=== PATIENT | male | born 1940 | race Caucasian/White ===

== ENCOUNTER 2019-12-09 17:55 | Emergency (ER) | payer MEDICARE, BC, SELFPAY ==
[2019-12-09] VITALS (10 sets, daily range): BP systolic 167–174; BP diastolic 80–102; PULSE 70–79; RESP 1–24; TEMP 37.1; O2SAT 94–100; BMI 52.9
--- NOTE | 2019-12-09 19:01 | ED_ITS ---
Documented by User: Umesh Glasgow DO 12/12/19 07:24 HPI - Dizziness General: Chief Complaint: Dizziness Stated Complaint: dizzy Time Seen by Provider: 12/09/19 18:45 History of Present Illness: HPI Narrative: 79-year-old male comes in with dizziness. He states he was fine this morning he first got out of bed and got back into bed when he got out of bed the second time he instantly had nausea he vomited once he felt a bit better so he sat down drink some coffee he got back up again and vomited he thought he might get felt better if he laid down so he laid down for the next several hours. When he woke up all of his symptoms are persisting whenever he looks to the left or when he stands up from a seated or lying position he can reproduce his symptoms. He also noted when he were does reproduce his symptoms he frequently gets dry heaves or vomiting and he has significant balance problems. Looking to the left will definitely repeat repeatedly precipitate the symptoms he demonstrated in the room although he denies any vomiting when he did that. He denies any chest pain or shortness of breath denies any abdominal pain has not been around anyone and is known to be exposed COVID and he denies any cough or upper respiratory symptoms. MD elicited complaint: dizziness, lightheadedness and difficulty walking Onset (ago): hour(s) Timing: sudden onset Severity: moderate Description: sense of movement, room spinning , lightheadedness, off-balance and difficulty walking Context: change in body position History of similar symptoms: No Exacerbating factors: movement/ambulation, change in body position and other (Turning his head to the left repeatedly triggers the dizziness) Relieving factors: remaining still and lying down Associated symptoms: Reports no associated symptoms; Denies chest pain, chills, malaise, nausea, nasal congestion or vomiting Associated neuro symptoms: Reports no associated symptoms Review of Systems Const: Denies: fever(s), chills, body aches, change in appetite, fatigue or malaise ENMT: Denies: throat pain, ear or mastoid pain, nasal discharge or nasal congestion Card: Denies: chest pain, edema, dyspnea on exertion or orthopnea Resp: Denies: dyspnea, productive cough or non-productive cough GI: Denies: abdominal pain, nausea, vomiting, hematemesis, coffee ground emesis, diarrhea, constipation, bloating, hematochezia or melena : Denies: flank pain, dysuria, urinary frequency or urinary urgency Skin/Breast: Denies: rash or pruritus PFSH ED PFSH: Medical History (Updated 12/09/19 @ 21:21 by Falguni Hart) Atrial fibrillation Impaired glucose tolerance Surgical History (Updated 12/09/19 @ 19:04 by Umesh Glasgow DO) History of permanent cardiac pacemaker placement Social History (Updated 12/09/19 @ 19:05 by Umesh Glasgow DO) Smoking and tobacco status: never smoked Alcohol intake: current Alcohol intake frequency: 0-2 Drinks per Day Physical Exam Const: COMMON NORMALS: no acute distress GENERAL APPEARANCE: cooperative and comfortable ORIENTATION/CONSCIOUSNESS: Yes awake, Yes oriented to person, Yes oriented to place and Yes oriented to time HENMT: COMMON NORMALS: normocephalic, atraumatic, hearing grossly normal bilaterally, external ears normal, EAC's normal, TM's normal bilaterally, Normal nasal mucous membranes and turbinates present, moist oral mucous membranes and oropharynx normal HEAD & SCALP: normocephalic and atraumatic NOSE: Normal nasal mucous membranes and turbinates present EXTERNAL EAR: Yes external ears normal EXTERNAL AUDITORY CANAL: EAC's normal TYMPANIC MEMBRANE: TM's normal bilaterally Eye: COMMON NORMALS: Equal, round and reactive pupils present, EOMs intact bilaterally, conjunctivae normal and no scleral icterus CONJUNCTIVA: Yes conjunctivae normal PUPIL: Yes Equal, round and reactive pupils present Neck/C-Spine: COMMON NORMALS: full ROM, no lymphadenopathy, supple and no JVD Lymph: LYMPHATIC: no lymphadenopathy noted and no lymphedema noted Resp: COMMON NORMALS: normal respiratory effort, No retractions, No use of accessory muscles and clear to auscultation bilaterally AUSCULTATION: clear to auscultation bilaterally Cardio: COMMON NORMALS: no JVD, regular rate, regular rhythm and No murmurs present (Cardio) RATE: regular rate RHYTHM: regular rhythm GI: COMMON NORMALS: Soft to palpation and No hepatosplenomegaly present AUSCULTATION: Yes normoactive bowel sounds PALPATION: Yes Soft to palpation, No Tenderness to palpation present (GI), No Guarding due to palpation present (GI) and Yes No hepatosplenomegaly present Extremity: COMMON NORMALS: normal to inspection, capillary refill normal, no clubbing, cyanosis or edema, no calf tenderness and no pedal edema Neuro: SENSORIUM/ORIENTATION: Yes oriented to person, Yes oriented to place and Yes oriented to time Skin: COMMON NORMALS: no rashes or lesions noted GENERAL SKIN EXAM: no rashes or lesions noted Course Vital Signs: Vital signs: Vital Signs Temperature 98.7 F 12/09/19 18:19 Pulse Rate 72 12/09/19 21:44 Respiratory Rate 20 H 12/09/19 21:44 Blood Pressure 167/87 12/09/19 21:44 Pulse Oximetry 95 12/09/19 21:44 MDM - Dizziness MDM Narrative: Medical decision making narrative: Care turned over to Dr. Beckett at change of shift Lab Data: Labs: Lab Results 12/09/19 12/09/19 12/09/19 Range/Units 19:32 19:32 19:32 WBC 8.7 (4.0-10.0) 10^3/ uL RBC 4.65 (4.1-5.3) 10^6/u L Hgb 14.0 (11.7-16.6) g/dL Hct 44.4 (42.0-52.0) % MCV 95.5 H (80-94) fL MCH 30.1 (28.0-34.0) pg MCHC 31.5 (30.0-36.0) g/dL RDW 13.9 (12.1-15.1) % Plt Count 153 (130-400) 10^3/c mm MPV 12.0 H (7.4-10.4) fL Neut % (Auto) 90.0 % Lymph % (Auto) 7.2 % [place] % (Auto) 2.3 % Eos % (Auto) 0.0 % Baso % (Auto) 0.2 % Neut # (Auto) 7.8 H (1.8-7.7) 10^3/u L Lymph # (Auto) 0.6 L (0.8-4.8) 10^3/u L [place] # (Auto) 0.2 (0.2-0.9) 10^3/u L Eos # (Auto) 0.0 (0.0-0.8) 10^3/u L Baso # (Auto) 0.0 (0.0-0.1) 10^3/u L Nucleated RBC % (a uto) 0 % Nucleated RBCs # 0.0 /100WBC PT 24.90 H (10.5-13.3) SECO NDS INR 2.16 H (0.8-1.2) Sodium 137 (136-145) mmol/L Potassium 4.7 (3.5-5.1) mmol/L Chloride 100 (98-107) mmol/L Carbon Dioxide 24 (22-29) mmol/L Anion Gap 17.7 (5-19) BUN 28 H (8-23) mg/dL Creatinine 1.0 (0.7-1.2) mg/dL Glucose 153 H (65-115) mg/dL Calculated Osmolal ity 284 L (285-295) mOsm/k g Calcium 10.0 (8.5-10.5) mg/dL Total Bilirubin 0.5 (0.15-1.2) mg/dL AST 17 (0-40) U/L ALT 14 (0-41) U/L Alkaline Phosphata se 86 (40-130) IU/L Troponin T Baselin e (0-15) ng/L Total Protein 7.8 (6.6-8.7) g/dL Albumin 4.0 (3.5-5.2) g/dL Globulin 3.8 (1.3-4.6) g/dL // Range/Units 19:32 WBC (4.0-10.0) 10^3/ uL RBC (4.1-5.3) 10^6/u L Hgb (11.7-16.6) g/dL Hct (42.0-52.0) % MCV (80-94) fL MCH (28.0-34.0) pg MCHC (30.0-36.0) g/dL RDW (12.1-15.1) % Plt Count (130-400) 10^3/c mm MPV (7.4-10.4) fL Neut % (Auto) % Lymph % (Auto) % [place] % (Auto) % Eos % (Auto) % Baso % (Auto) % Neut # (Auto) (1.8-7.7) 10^3/u L Lymph # (Auto) (0.8-4.8) 10^3/u L [place] # (Auto) (0.2-0.9) 10^3/u L Eos # (Auto) (0.0-0.8) 10^3/u L Baso # (Auto) (0.0-0.1) 10^3/u L Nucleated RBC % (a uto) % Nucleated RBCs # /100WBC PT (10.5-13.3) SECO NDS INR (0.8-1.2) Sodium (136-145) mmol/L Potassium (3.5-5.1) mmol/L Chloride (98-107) mmol/L Carbon Dioxide (22-29) mmol/L Anion Gap (5-19) BUN (8-23) mg/dL Creatinine (0.7-1.2) mg/dL Glucose (65-115) mg/dL Calculated Osmolal ity (285-295) mOsm/k g Calcium (8.5-10.5) mg/dL Total Bilirubin (0.15-1.2) mg/dL AST (0-40) U/L ALT (0-41) U/L Alkaline Phosphata se (40-130) IU/L Troponin T Baselin e 36 H (0-15) ng/L Total Protein (6.6-8.7) g/dL Albumin (3.5-5.2) g/dL Globulin (1.3-4.6) g/dL Discharge Plan Discharge Patient Disposition: Home, Self-Care Clinical Impression: Benign paroxysmal positional vertigo Qualifiers: Laterality: left Qualified Code(s): H81.12 - Benign paroxysmal vertigo, left ear Condition: Stable Prescriptions: New Valium 5 mg tablet 2.5 mg PO QID PRN (Reason: dizziness or vertigo) Qty: 10 RF: 0 meclizine 25 mg tablet 25 mg PO QID PRN (Reason: dizziness) Qty: 60 RF: 0 Discharge Orders: Discharge Order (Routine); Ordered 12/09/19 Ordered By: Falguni Hart Referrals: Gael Quach MD [Physician] - 1-3 days Discharge Diet: Advance as tolerated Discharge Activity: Limit activity as instructed Patient Instructions: Vertigo (ED), Benign Paroxysmal Positional Vertigo (ED), Dizziness (ED) Activity Restrictions/Additional Instructions: Please return to the ER immediately for any of the signs or symptoms listed on your discharge instruction sheets, worsening/changing of your symptoms, you are not getting better as quickly as expected, or for ANY other cause or concerns. I have recommended and offered to evaluate your dizziness further with a different type of CT scan here but you have declined. I cannot definitively rule out a stroke in the deep part of your brain without this. If you change your mind, your symptoms worsen, or you have any other concerns or you simply change your mind you are more than welcome to return to the ER for recheck. Do not take both your Valium and Antivert together. Try Valium for the next 24 to 48 hours if your symptoms resolve try Antivert as needed for the dizziness. Be very careful while taking Valium as it can make you sleepy and lightheaded. Take extra time to perform all of your daily activities as you do not want to fa ll or hit your head being on Coumadin. Discharge Date/Time: 12/09/19 21:48 Sign Out Sign Out Data: Patient Sign Out occurred on 12/09/19 at 19:30. Patient's care was discussed, and care was transferred from Umesh Glasgow DO to Falguni Hart. Sign Out Comment: Likely positional vertigo is on Coumadin CT head INR other l abs pending Last updated by Umesh Glasgow DO at 12/09/19 19:15 Coding Level of Care Code ED Tab Card Press Operator for Chg Fwd Exam Comprehensive Documented by User: Falguni Hart 12/09/19 23:29 HPI - Dizziness General: Chief Complaint: Dizziness Stated Complaint: dizzy Time Seen by Provider: 12/09/19 18:45 PFSH ED PFSH: Medical History (Updated 12/09/19 @ 21:21 by Falguni Hart) Atrial fibrillation Impaired glucose tolerance Surgical History (Updated 12/09/19 @ 19:04 by Umesh Glasgow DO) History of permanent cardiac pacemaker placement Social History (Updated 12/09/19 @ 19:05 by Umesh Glasgow, DO) Smoking and tobacco status: never smoked Alcohol intake: current Alcohol intake frequency: 0-2 Drinks per Day Course Vital Signs: Vital signs: Vital Signs Temperature 98.7 F 12/09/19 18:19 Pulse Rate 72 12/09/19 21:44 Respiratory Rate 20 H 12/09/19 21:44 Blood Pressure 167/87 12/09/19 21:44 Pulse Oximetry 95 12/09/19 21:44 MDM - Dizziness MDM Narrative: Medical decision making narrative: 2123 -patient care turned over to me at change of shift from Dr. Glasgow. Please see his notes for his history, physical exam and medical decision-making notes. At this time the patient has no further dizziness or vomiting. I have discussed with him at length the possibility of MRI for evaluation of cerebellar CVA but he has a defibrillator/pacemaker and will not be able to have this. I then suggested a CTA of the head and neck to definitively rule any dissection and he declines this as well. He states he is feeling better and wants to go home. With his symptoms gone and his symptoms only being precipitated with head movement in certain directions and no dizziness at rest I think this is much more likely to be benign positional vertigo. Patient agrees to return should his symptoms change or worsen at this time though he is certain he wants to go home. He declines a repeat EKG or troponin to evaluate cardiac freeman even though his first troponin was slightly elevated. He has had no chest pain or shortness of breath. Patient understands he is welcome to return anytime should he change his mind. The patient's been instructed to try Valium for the next 24 to 48 hours with hopes that his dizziness will resolve and then he can use the meclizine as needed. He understands this instruction. He also agrees to return should his symptoms change or worsen and he knows to take extra time to get around as he is on Valium and this may make him lightheaded and with his baseline dizziness he is at higher risk to fall. He understands all these instructions and denies any other questions or concerns. At this time I see no evidence of CVA on his CT, his symptoms and history and exam are consistent with vertigo. I cannot rule out carotid or vertebral dissection although I think this is unlikely. Lab Data: Attestation: I reviewed the patient's lab results. Labs: Lab Results 12/09/19 12/09/19 12/09/19 Range/Units 19:32 19:32 19:32 WBC 8.7 (4.0-10.0) 10^3/ uL RBC 4.65 (4.1-5.3) 10^6/u L Hgb 14.0 (11.7-16.6) g/dL Hct 44.4 (42.0-52.0) % MCV 95.5 H (80-94) fL MCH 30.1 (28.0-34.0) pg MCHC 31.5 (30.0-36.0) g/dL RDW 13.9 (12.1-15.1) % Plt Count 153 (130-400) 10^3/c mm MPV 12.0 H (7.4-10.4) fL Neut % (Auto) 90.0 % Lymph % (Auto) 7.2 % [place] % (Auto) 2.3 % Eos % (Auto) 0.0 % Baso % (Auto) 0.2 % Neut # (Auto) 7.8 H (1.8-7.7) 10^3/u L Lymph # (Auto) 0.6 L (0.8-4.8) 10^3/u L [place] # (Auto) 0.2 (0.2-0.9) 10^3/u L Eos # (Auto) 0.0 (0.0-0.8) 10^3/u L Baso # (Auto) 0.0 (0.0-0.1) 10^3/u L Nucleated RBC % (a uto) 0 % Nucleated RBCs # 0.0 /100WBC PT 24.90 H (10.5-13.3) SECO NDS INR 2.16 H (0.8-1.2) Sodium 137 (136-145) mmol/L Potassium 4.7 (3.5-5.1) mmol/L Chloride 100 (98-107) mmol/L Carbon Dioxide 24 (22-29) mmol/L Anion Gap 17.7 (5-19) BUN 28 H (8-23) mg/dL Creatinine 1.0 (0.7-1.2) mg/dL Glucose 153 H (65-115) mg/dL Calculated Osmolal ity 284 L (285-295) mOsm/k g Calcium 10.0 (8.5-10.5) mg/dL Total Bilirubin 0.5 (0.15-1.2) mg/dL AST 17 (0-40) U/L ALT 14 (0-41) U/L Alkaline Phosphata se 86 (40-130) IU/L Troponin T Baselin e (0-15) ng/L Total Protein 7.8 (6.6-8.7) g/dL Albumin 4.0 (3.5-5.2) g/dL Globulin 3.8 (1.3-4.6) g/dL 12/09/19 Range/Units 19:32 WBC (4.0-10.0) 10^3/ uL RBC (4.1-5.3) 10^6/u L Hgb (11.7-16.6) g/dL Hct (42.0-52.0) % MCV (80-94) fL MCH (28.0-34.0) pg MCHC (30.0-36.0) g/dL RDW (12.1-15.1) % Plt Count (130-400) 10^3/c mm MPV (7.4-10.4) fL Neut % (Auto) % Lymph % (Auto) % [place] % (Auto) % Eos % (Auto) % Baso % (Auto) % Neut # (Auto) (1.8-7.7) 10^3/u L Lymph # (Auto) (0.8-4.8) 10^3/u L [place] # (Auto) (0.2-0.9) 10^3/u L Eos # (Auto) (0.0-0.8) 10^3/u L Baso # (Auto) (0.0-0.1) 10^3/u L Nucleated RBC % (a uto) % Nucleated RBCs # /100WBC PT (10.5-13.3) SECO NDS INR (0.8-1.2) Sodium (136-145) mmol/L Potassium (3.5-5.1) mmol/L Chloride (98-107) mmol/L Carbon Dioxide (22-29) mmol/L Anion Gap (5-19) BUN (8-23) mg/dL Creatinine (0.7-1.2) mg/dL Glucose (65-115) mg/dL Calculated Osmolal ity (285-295) mOsm/k g Calcium (8.5-10.5) mg/dL Total Bilirubin (0.15-1.2) mg/dL AST (0-40) U/L ALT (0-41) U/L Alkaline Phosphata se (40-130) IU/L Troponin T Baselin e 36 H (0-15) ng/L Total Protein (6.6-8.7) g/dL Albumin (3.5-5.2) g/dL Globulin (1.3-4.6) g/dL Imaging Data^: CXR: My impression: Cardiomegaly with possible mild pulmonary vascular congestion. CT Head: Radiologist's impression: [place] [address] CT Scan Report Signed Patient: Carlito Erickson Unit #: [id number] : 1940 Age/Sex: 79 / M ADM Date: 12/09/19 Loc: ER Room/Bed: Attending Dr: Ordering Provider/Ordering MD: Umesh Glasgow DO Date of Service: 12/09/19 Procedure(s): CT head wo con* [id number] Accession Number(s): [id number] Report Number: [id number] PROCEDURE INFORMATION: Exam: CT Head Without Contrast Exam date and time: 12/09/2019 7:30 PM Age: 79 years old Clinical indication: Dizziness TECHNIQUE: Imaging protocol: Computed tomography of the head without contrast. Radiation optimization: All CT scans at this facility use at least one of these dose optimization techniques: automated exposure control; mA and/or kV adjustment per patient size (includes targeted exams where dose is matched to clinical indication); or iterative reconstruction. COMPARISON: No relevant prior studies available. RADIATION DOSE METRICS: Total DLP (mGy-cm): 907.17 FINDINGS: Brain: Normal. No hemorrhage. Unremarkable white matter. No mass effect. Ventricles: Normal. No ventriculomegaly. Bones/joints: Unremarkable. No acute fracture. Sinuses: Visualized sinuses are unremarkable. No fluid levels. Mastoid air cells: Visualized mastoid air cells are well aerated. Soft tissues: Unremarkable. CT/CT head wo con* [id number] IMPRESSION: No acute intracranial abnormality. Radiation Dose CTDIVOL = (mGy): DLP = 907.17 (mGy-cm) Dictated By: Vivienne Neumann Signed By: Vivienne Neumann Signed Date/Time: 12/09/191957 DD/ 56 EKG Data^: EKG 1: Attestation: I personally reviewed and interpreted this EKG as follows: EKG interpretation date: 12/09/19 EKG interpretation time: 19:48 Interpretation: Probable paced rhythm with a bundle branch block morphology. Ventricular rate 72. Discharge Plan Discharge Patient Disposition: Home, Self-Care Clinical Impression: Benign paroxysmal positional vertigo Qualifiers: Laterality: left Qualified Code(s): H81.12 - Benign paroxysmal vertigo, left ear Condition: Stable Prescriptions: New Valium 5 mg tablet 2.5 mg PO QID PRN (Reason: dizziness or vertigo) Qty: 10 RF: 0 meclizine 25 mg tablet 25 mg PO QID PRN (Reason: dizziness) Qty: 60 RF: 0 Discharge Orders: Discharge Order (Routine); Ordered 12/09/19 Ordered By: Falguni Hart Referrals: Gael Quach MD [Physician] - 1-3 days Discharge Diet: Advance as tolerated Discharge Activity: Limit activity as instructed Patient Instructions: Vertigo (ED), Benign Paroxysmal Positional Vertigo (ED), Dizziness (ED) Activity Restrictions/Additional Instructions: Please return to the ER immediately for any of the signs or symptoms listed on your discharge instruction sheets, worsening/changing of your symptoms, you are not getting better as quickly as expected, or for ANY other cause or concerns. I have recommended and offered to evaluate your dizziness further with a different type of CT scan here but you have declined. I cannot definitively rule out a stroke in the deep part of your brain without this. If you change your mind, your symptoms worsen, or you have any other concerns or you simply change your mind you are more than welcome to return to the ER for recheck. Do not take both your Valium and Antivert together. Try Valium for the next 24 to 48 hours if your symptoms resolve try Antivert as needed for the dizziness. Be very careful while taking Valium as it can make you sleepy and lightheaded. Take extra time to perform all of your daily activities as you do not want to fall or hit your head being on Coumadin. Discharge Date/Time: 12/09/19 21:48 Sign Out Sign Out Data: Patient Sign Out occurred on 12/09/19 at 19:30. Patient's care was discussed, and care was transferred from Umesh Glasgow DO to Falguni Hart. Sign Out Comment: Likely positional vertigo is on Coumadin CT head INR other labs pending Last updated by Umesh Glasgow DO at 12/09/19 19:15 Coding Level of Care Code ED Tab Card Press Operator for Chg Fwd Exam Comprehensive
--- NOTE | 2019-12-09 19:09 | CTR_ITS ---
PROCEDURE INFORMATION: Exam: CT Head Without Contrast Exam date and time: 12/09/2019 7:30 PM Age: 79 years old Clinical indication: Dizziness TECHNIQUE: Imaging protocol: Computed tomography of the head without contrast. Radiation optimization: All CT scans at this facility use at least one of these dose optimization techniques: automated exposure control; mA and/or kV adjustment per patient size (includes targeted exams where dose is matched to clinical indication); or iterative reconstruction. COMPARISON: No relevant prior studies available. RADIATION DOSE METRICS: Total DLP (mGy-cm): 907.17 FINDINGS: Brain: Normal. No hemorrhage. Unremarkable white matter. No mass effect. Ventricles: Normal. No ventriculomegaly. Bones/joints: Unremarkable. No acute fracture. Sinuses: Visualized sinuses are unremarkable. No fluid levels. Mastoid air cells: Visualized mastoid air cells are well aerated. Soft tissues: Unremarkable. CT/CT head wo con* [id number] IMPRESSION: No acute intracranial abnormality. Radiation Dose CTDIVOL = (mGy): DLP = 907.17 (mGy-cm)
--- NOTE | 2019-12-09 19:09 | XRR_ITS ---
PROCEDURE INFORMATION: Exam: XR Chest, 1 View Exam date and time: 12/09/2019 7:51 PM Age: 79 years old Clinical indication: Cough and dyspnea; Additional info: Dyspnea/cough TECHNIQUE: Imaging protocol: XR of the chest Views: 1 view. COMPARISON: No relevant prior studies available. FINDINGS: Tubes, catheters and devices: A pacemaker device is present, and its leads are in appropriate position. Lungs: Nonspecific mild bibasilar opacity is present, consistent with atelectasis, fibrosis, edema, or pneumonitis. No lobar consolidation. The vascularity is within normal limits. Pleural space: Unremarkable. No pleural effusion. No pneumothorax. Heart/Mediastinum: The heart is enlarged. Bones/joints: No acute abnormality. XR/XR chest 1V portable [id number] IMPRESSION: Nonspecific mild bibasilar opacity is present, consistent with atelectasis, fibrosis, edema, or pneumonitis.
--- NOTE | 2019-12-09 19:10 | ECG_ITS ---
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 Measurements Intervals [place] Rate: 72 P: [place]: -1 QRS: 108 QRSD: 164 T: 22 QT: 465 QTc: 510 Interpretive Statements UNCERTAIN REGULAR RHYTHM INTRAVENTRICULAR CONDUCTION DELAY LATERAL MYOCARDIAL INFARCTION [40+ ms Q WAVE AND/OR ST/T ABNORMALITY IN I/aVL/V5/V6], OF INDETERMINATE AGE No previous ECG available for comparison Electronically Signed On 12-12-2019 19:06:07 CDT by Julia Mohamud M.D. [id number]
[2019-12-09 19:42] LABS: Basophils % 0.2 %; Hematocrit 44.4 % (42.0-52.0); Lymphocytes # 0.6 10^3/uL (0.8-4.8); Lymphocytes % 7.2 %; Mean Corpuscular HGB Conc 31.5 g/dL (30.0-36.0); Mean Corpuscular Hemoglobin 30.1 pg (28.0-34.0); Mean Corpuscular Volume 95.5 fL (80-94); Monocytes # 0.2 10^3/uL (0.2-0.9); Monocytes % 2.3 %; Neutrophils # 7.8 10^3/uL (1.8-7.7); Nucleated Red Blood Cells % 0 %; Platelet Count 153 10^3/cmm (130-400); Red Blood Count 4.65 10^6/uL (4.1-5.3); Red Cell Distribution Width 13.9 % (12.1-15.1); White Blood Count 8.7 10^3/uL (4.0-10.0)
[2019-12-09 19:49] LABS: INR 2.16 (0.8-1.2)
[2019-12-09 19:54] LABS: Alanine Aminotransferase 14 U/L (0-41); Alkaline Phosphatase 86 IU/L (40-130); Anion Gap 17.7 (5-19); Aspartate Amino Transferase 17 U/L (0-40); Blood Urea Nitrogen 28 mg/dL (8-23); Carbon Dioxide 24 mmol/L (22-29); Chloride 100 mmol/L (98-107); Globulin 3.8 g/dL (1.3-4.6); Glucose 153 mg/dL (65-115); Osmolality Calculated 284 mOsm/kg (285-295); Potassium 4.7 mmol/L (3.5-5.1); Sodium 137 mmol/L (136-145); Total Bilirubin 0.5 mg/dL (0.15-1.2); Total Protein 7.8 g/dL (6.6-8.7)
[2019-12-09 19:56] LABS: Troponin(5th) Baseline 36 ng/L (0-15)
[2019-12-09] MEDS: diazePAM 5 mg Tablet PO (20:00)
[2019-12-09] MEDS: ondansetron 2 mg/ML SDV 2 mL 4 MG IVP (20:00)
== END 2019-12-09 21:48 | disposition home or self-care (01) ==
PROVIDERS: Family Medicine; Emergency Provider Emergency Medicine
DX: H81.12 Benign paroxysmal vertigo, left ear (principal); I48.91 Unspecified atrial fibrillation; Z95.0 Presence of cardiac pacemaker
CPT/HCPCS: 12345; 70450; 71045; 80053; 84484; 85025; 85610; 93005; 96374; 99283; 99284; J2405